=== PATIENT | female | born 1975 | race Caucasian/White ===

== ENCOUNTER 2023-08-21 12:16 | Emergency (ER) | payer OTHER ==
[~2023-08-21] VITALS: Ht 160 cm; Wt 95.0 kg
[2023-08-21 12:38] VITALS: O2SAT 100
[2023-08-21] MEDS ORDERED: SULF1TAB48 MT (15:00)
[2023-08-21] MEDS ORDERED: CEFD300C3 MT (15:02)
[2023-08-21 15:14] VITALS: BP 138/71; PULSE 68; RESP 18; TEMP 98.1
== END 2023-08-21 15:19 | disposition home or self-care (01) ==
LOC: ER 12:16
DX: L03.213 Periorbital cellulitis (principal)
CPT/HCPCS: 99283